=== PATIENT | female | born 1995 | race Asian ===

== ENCOUNTER 2018-03-20 09:36 | Emergency (ER) | payer MEDICAID, SELFPAY ==
--- NOTE | 2018-03-20 11:14 | ULT ---
OB ULTRASOUND: HISTORY: Abdominal pain. FINDINGS: A single live intrauterine gestation is seen with measurements corresponding to an estimated gestatio nal age of 17 weeks 1 day and an YVONNE of 08/27/2016. measurements are as follows: BPD: 3.64 cm (17 weeks 1 day) HC: 13 84 cm (17 weeks 2 days) AC: 12.13 cm (17 weeks 6 days) FL: 2.27 cm (16 weeks 6 days) The estimated weight measures 190 g (7 oz). The heart rate measures 153 beats per minute . Amniotic fluid appears adequate. The placenta is anteriorly located without evidence of placenta previa. Three-vessel cord, cord insertion, kidneys, bladder, stomach, lateral ventricles, four-chambere d heart, cerebellum, spine, lips/nose, and upper and lower extremities are visualized. No definite f etal anomalies are seen. IMPRESSION: Single live intrauterine of 17 weeks 1 day estimated gestational age and estimated date of delivery of 08/27/2018. POS: GAIL
[2018-03-20 11:32] LABS: Bilirubin Negative (Negative); Blood, Urine Negative (Negative); Clarity CLOUDY (Clear); Glucose, Urine (Dipstick) Negative (Negative); Leukocyte Large (Negative); Nitrite Negative (Negative); Protein, Urine (Dipstick) Negative (Neg-Trace); Specific Gravity, Urine 1.011 (1.002-1.036); Urobilinogen 0.2 mg/dL (0.2-1.0); pH, Urine 7.5 (5.0-9.0)
[2018-03-20 11:34] LABS: Bacteria/HPF Rare-Few HPF (None Seen); Hyaline Casts/LPF 0-3 HYALINE CAST LPF (0-3 Hyaline); RBC/HPF 0-3 HPF (0-3)
== END 2018-03-20 12:02 | disposition home or self-care (01) ==
LOC: ERS 09:36
DX: O99.89 Other specified diseases and conditions complicating pregnancy, childbirth and the puerperium (principal); R10.30 Lower abdominal pain, unspecified; Z3A.17 17 weeks gestation of pregnancy
CPT/HCPCS: 76805; 81003; 81015